=== PATIENT | male | born 1940 | race Caucasian/White ===

== ENCOUNTER → 2016-03-14 | Outpatient (CLI) | payer MEDICARE, BC ==
[~2016-03-14] VITALS: Ht 175.3 cm; Wt 70.5 kg
[~2016-03-14] MED LIST: NORVASC 5MG5 MG/TAB PO; PRAVACHOL80 MG PO
[2016-03-14 13:59] VITALS: BP 149/84; PULSE 78
[2016-03-14 14:50] VITALS: BP 164/93; PULSE 82
== END ==
LOC: COL.RAD 13:30
DX: M54.5 Low back pain (principal); M47.896 Other spondylosis, lumbar region; M48.06 Spinal stenosis, lumbar region; M51.16 Intervertebral disc disorders with radiculopathy, lumbar region
CPT/HCPCS: J3301

== ENCOUNTER → 2017-03-26 | Outpatient (CLI) | payer MEDICARE, BC | LOC: COL.LAB 14:16 | DX: Z01.812 Encounter for preprocedural laboratory examination (principal) ==

== ENCOUNTER → 2017-03-31 | Outpatient (CLI) | payer MEDICARE, BC | LOC: COL.LAB 10:21 | DX: Z01.812 Encounter for preprocedural laboratory examination (principal) ==

== ENCOUNTER 2017-09-26 14:19 | Observation (INO) | payer MEDICARE, BC ==
[~2017-09-26] VITALS: Ht 172.7 cm; Wt 72.8 kg
[2017-09-26] VITALS (11 sets, daily range): BP systolic 102–143; BP diastolic 64–98; PULSE 56–70; TEMP 98.5–99.3
[2017-09-27 04:54] VITALS: BP 149/76; PULSE 68; TEMP 98.5
[2017-09-27 05:50] VITALS: BP 140/76; PULSE 67; TEMP 98
[2017-09-27 07:40] VITALS: BP 127/74; PULSE 67; TEMP 99.4
[2017-09-27 08:19] LABS: BASO % 0.4 % (0.0-2.0); EOS % 0.3 % (0-4.0); GRAN # 4.2 (1.4-6.5); HEMATOCRIT 41.8 % (42.0-52.0); HEMOGLOBIN 14.3 g/dl (13.5-18.0); LYMPH # 1.7 (1.2-3.4); LYMPH % 24.2 % (20.0-51.0); MEAN CELL VOLUME 99 fl (80.0-100.0); MEAN CORPUSCULAR HEMOGLOBIN 34 pg (27.0-31.0); MEAN CORPUSCULAR HGB CONC 34 g/dl (33.0-37.0); MEAN PLATELET VOLUME 9.7 fl (7.4-10.4); MONO # 0.9 (0.1-0.6); MONO % 13.7 % (1.7-9.3); PLATELET COUNT 205 K/mm3 (130-400); RED BLOOD COUNT 4.23 M/mm3 (4.20-5.60); REDCELL DISTRIBUTION WIDTH-CV 12.4 % (11.5-14.5)
[2017-09-27 08:32] LABS: ANION GAP 9 mmol/L (7-16); BLOOD UREA NITROGEN 9 mg/dL (9-20); CALCIUM 9.5 mg/dL (8.4-10.2); CARBON DIOXIDE 24 mmol/L (22-30); CHLORIDE 101 mmol/L (98-107); GLUCOSE 123 mg/dL (74-106); SODIUM 134 mmol/L (137-145)
[2017-09-27 08:43] LABS: TROPONIN-I < 0.012 ng/mL (0.000-0.034)
[2017-09-27] MEDS ORDERED: ASPIRIN 81M81 MG/TA2 PO (09:31)
[2017-09-27 09:54] VITALS: BP 133/70; PULSE 66; TEMP 98.1
== END 2017-09-27 10:53 | disposition home or self-care (01) ==
LOC: MEDICAL 14:19
PROVIDERS: Physician Assistant
DX: I25.10 Atherosclerotic heart disease of native coronary artery without angina pectoris (principal); R94.39 Abnormal result of other cardiovascular function study; I10 Essential (primary) hypertension; F17.210 Nicotine dependence, cigarettes, uncomplicated; E78.5 Hyperlipidemia, unspecified; K21.9 Gastro-esophageal reflux disease without esophagitis; Z79.82 Long term (current) use of aspirin; Z96.642 Presence of left artificial hip joint; Z82.49 Family history of ischemic heart disease and other diseases of the circulatory system
CPT/HCPCS: G0378; G0379; J1644; J1650; J2250; J3010; J7030; Q9967

== ENCOUNTER → 2018-01-21 | Outpatient (CLI) | payer MEDICARE, BC ==
[~2018-01-21] MED LIST changes: +ASPIRIN 81M81 MG/TA2 PO
== END ==
LOC: COL.LAB 09:22
DX: Z01.812 Encounter for preprocedural laboratory examination (principal)